=== PATIENT | male | born 1970 | race Caucasian/White ===

== ENCOUNTER 2018-01-19 21:40 | Emergency (ER) | payer SELFPAY ==
[~2018-01-19] VITALS: Ht 167.6 cm; Wt 65.0 kg
[2018-01-19 22:40] VITALS: BP 134/98
== END 2018-01-19 22:04 | disposition home or self-care (01) ==
LOC: ED 21:58
DX: F39 Unspecified mood [affective] disorder (principal)
CPT/HCPCS: 99284